=== PATIENT | female | born 1960 ===

== ENCOUNTER 2022-01-09 23:47 | Emergency (ER) | payer SELFPAY | END 2022-01-10 00:31 | disposition left against medical advice (07) | LOC: CSHERS 23:47 | DX: Z53.21 Procedure and treatment not carried out due to patient leaving prior to being seen by health care provider (principal) ==

== ENCOUNTER 2022-12-03 20:04 | Emergency (ER) | payer BC, SELFPAY | END 2022-12-03 20:57 | disposition home or self-care (01) | LOC: CSHERS 20:04 | DX: S70.362A Insect bite (nonvenomous), left thigh, initial encounter (principal); S70.361A Insect bite (nonvenomous), right thigh, initial encounter; I10 Essential (primary) hypertension; E78.00 Pure hypercholesterolemia, unspecified; W57.XXXA Bitten or stung by nonvenomous insect and other nonvenomous arthropods, initial encounter | CPT/HCPCS: 99282 ==